=== PATIENT | female | born 1930 | race African-American/Black ===

== ENCOUNTER 2017-02-18 19:01 | Emergency (ER) | payer OTHER, BC ==
[2017-02-18 19:14] VITALS: BP 213/117; PULSE 67; TEMP 98.4; BMI 21.4
== END 2017-02-19 00:21 | disposition left against medical advice (07) ==
LOC: JER 19:01
DX: Z53.21 Procedure and treatment not carried out due to patient leaving prior to being seen by health care provider (principal)
CPT/HCPCS: 99281-25

== ENCOUNTER 2017-02-23 09:49 | Emergency (ER) | payer OTHER, BC ==
[2017-02-23 09:56] VITALS: BP 200/76; PULSE 91; TEMP 98.9; BMI 20.1
== END 2017-02-23 10:21 | disposition left against medical advice (07) ==
LOC: JERFT 09:49
DX: Z53.21 Procedure and treatment not carried out due to patient leaving prior to being seen by health care provider (principal)
CPT/HCPCS: 99281-25

== ENCOUNTER 2018-01-24 18:54 | Emergency (ER) | payer BC, OTHER ==
[2018-01-24 19:09] VITALS: BP 192/64; PULSE 72; TEMP 98.4; BMI 18.3
--- NOTE | 2018-01-24 19:22 | PDOC ---
History of Present Illness - General Chief Complaint: Injury Stated Complaint: AMS Time Seen by Provider: 01/24/18 19:15 - History of Present Illness Initial Comments: 87 year old female with PMH of diabetes, hypertension, and hyperlipidemia, and chronic back pain presenting with an episode of semi-responsiveness two hours prior to presentation. Originally there was no admission of new medication ingestion but after further questioning of the grand daughter when the daughter was outside of the room, there was admission of a percocet for her back pain 1- 2 hours before the episode of semi-responsiveness. Regardless, the patient does not have great recollection of the episode but the family describes it as 3-5 minutes of semi responsiveness where she was weak and leaning on the daughter's shoulders. She was breathing the whole time but just seemed disoriented. She took time to recover from the episode (approximately 30 minutes) but recovered without intervention. The family staunchly deny seizure like activity, bowel/ bladder incontinence or post-ictal phase. Denies recent fevers, chills, nausea, vomiting, diarrhea, sob, chest pain, or other sick symptoms. 01/24/18 20:17 Past History - Past Medical History Allergies/Adverse Reactions: Allergies Allergy/AdvReac Type Severity Reaction Status Date / Time No Known Allergies Allergy Verified 01/24/18 19:09 Home Medications: Ambulatory Orders Amlodipine Besylate 5 mg PO DAILY #10 tablet 01/24/18 Atorvastatin Ca [Lipitor] 10 mg PO HS 01/24/18 Donepezil HCl 5 mg PO DAILY 01/24/18 Losartan Potassium 100 mg PO DAILY 01/24/18 Meloxicam 15 mg PO DAILY 01/24/18 Metformin HCl 500 mg PO DAILY 01/24/18 Sertraline HCl 25 mg PO DAILY 01/24/18 COPD: No Diabetes: Yes GI Disorders: Yes (gerd) HTN: Yes - Surgical History Appendectomy: Yes - Immunization History Immunization Up to Date: Yes - Suicide/Smoking/Psychosocial Hx Smoking History: Never smoked Have you smoked in the past 12 months: No Hx Alcohol Use: No Drug/Substance Use Hx: No Review of Systems - Review of Systems Constitutional: No: Chills, Diaphoresis, Fever HEENTM: No: Eye Pain, Blurred Vision Respiratory: No: Cough, Shortness of Breath, Productive cough Cardiac (ROS): No: Chest Pain, Edema, Lightheadedness ABD/GI: No: Constipated, Diarrhea, Nausea, Vomiting : No: Burning, Dysuria, Discharge Musculoskeletal: Yes: Back Pain, Joint Pain. No: Gout, Muscle Weakness Integumentary: No: Bruising, Change in Color, Flushing Neurological: No: Headache, Numbness, Paresthesia, Tingling, Tremors Psychiatric: No: Anxiety, Depression *Physical Exam - Vital Signs Last Vital Signs Temp Pulse Resp BP Pulse Ox 98.4 F 72 18 192/64 100 01/24/18 19:06 01/24/18 19:06 01/24/18 19:06 01/24/18 19:06 01/24/18 19:06 - Physical Exam General Appearance: Yes: Nourished, Appropriately Dressed. No: Apparent Distress HEENT: positive: EOMI, NOLBERTO, Normal ENT Inspection, Normal Voice Neck: positive: Trachea midline, Normal Thyroid, Supple. negative: Tender, Rigid Respiratory/Chest: positive: Lungs Clear, Normal Breath Sounds. negative: Chest Tender, Respiratory Distress, Accessory Muscle Use Cardiovascular: positive: Regular Rhythm, Regular Rate Gastrointestinal/Abdominal: positive: Normal Bowel Sounds, Flat, Soft. negative : Tender Musculoskeletal: positive: Normal Inspection. negative: Decreased Range of Motion Extremity: positive: Normal Capillary Refill, Normal Inspection, Normal Range of Motion. negative: Tender Integumentary: positive: Normal Color, Dry, Warm Neurologic: positive: software product specialist II-XII NML intact, Fully Oriented, Alert, Normal Mood/ Affect, Normal Response, Motor Strength 5/5, Responsive, Finger to Nose. negative: Abnormal Cranial NS, Facial Droop, Numbness, Sensory Deficit, Confused , Disoriented, Depressed Affect ED Treatment Course - LABORATORY CBC & Chemistry Diagram: 01/24/18 20:00 01/24/18 20:00 Medical Decision Making - Medical Decision Making Head CT negative, labs WNL, and hypertension resolved with 10 IV of hydralazine. Patient feeling much better and would like to go home. Will discharge with Dr. Greene follow up instructions because she wants a new PCP for better BP control. Her pressures have consistently been elevated. Will discharge home with additional 5 amlodipine daily. 01/24/18 21:15 *DC/Admit/Observation/Transfer Diagnosis at time of Disposition: Pre-syncope - Discharge Dispostion Disposition: HOME Condition at time of disposition: Improved Admit: No - Prescriptions Prescriptions: Amlodipine Besylate 5 mg PO DAILY #10 tablet - Referrals Referrals: Jamal Greene MD [Staff Physician] - - Patient Instructions Additional Instructions: Your pressure was very high. Your episode of weakness happened after your took a Percocet that you weren't supposed to take. Please follow up with your PCP this week or the new primary care physician that we placed on the instructions. For ytour blodo pressure you should be taking your metoprolol and losartan as directed plus Amlodipine 5 MG daily. We sent the Amlodipine prescription to your pharmacy. Please return to the ED if you have new or worsening symptoms. - Post Discharge Activity
[2018-01-24 20:11] LABS: BASO % 0.4 % (0-2.0); EOS % 0.2 % (0-4.5); HEMATOCRIT 31.4 % (32.4-45.2); HEMOGLOBIN 10.3 GM/dL (10.7-15.3); LYMPH % 17.1 % (8-40); MCH 26.5 pg (25.7-33.7); MCHC 32.9 g/dl (32.0-36.0); MEAN CELL VOLUME 80.8 fl (80-96); MEAN PLT VOLUME 8.5 fl (7.5-11.1); MONO % 6.1 % (3.8-10.2); NEUT % 76.2 % (42.8-82.8); PLATELET COUNT 292 K/MM3 (134-434); RBC 3.88 M/mm3 (3.60-5.2); RDW 15.7 % (11.6-15.6); WHITE BLOOD COUNT 6.2 K/mm3 (4.0-10.0)
[2018-01-24 20:26] LABS: INR 1.07 (0.82-1.09); PROTHROMBIN TIME (PATIENT) 12.1 SEC (9.98-11.88)
[2018-01-24] MEDS ORDERED: hydrALAZINE HCL 20 MG/ML VIAL IVPUSH ONE (20:36)
[2018-01-24 20:39] LABS: ALBUMIN 3.5 g/dl (3.4-5.0); ANION GAP 12 (8-16); BLOOD UREA NITROGEN 16 mg/dL (7-18); CALCIUM 8.8 mg/dL (8.5-10.1); CHLORIDE 104 mmol/L (98-107); CO2 25 mmol/L (21-32); CREATININE 0.9 mg/dL (0.55-1.02); GLUCOSE,RANDOM 120 mg/dL (74-106); POTASSIUM 3.8 mmol/L (3.5-5.1); SGOT/AST 33 U/L (15-37); SGPT/ALT 28 U/L (12-78); SODIUM 141 mmol/L (136-145)
[2018-01-24 20:43] LABS: ALK PHOS 106 U/L (45-117); BILIRUBIN,TOTAL 0.6 mg/dL (0.2-1.0); TOT PROT 7.2 g/dl (6.4-8.2)
[2018-01-24] MEDS ORDERED: hydrALAZINE HCL 20 MG/ML VIAL ONE (20:51)
--- NOTE | 2018-01-24 21:16 | PDOC ---
Attending Attestation - Resident Resident Name: Jose [email or web address] - ED Attending Attestation I have performed the following: I have examined & evaluated the patient, The case was reviewed & discussed with the resident, I agree w/resident's findings & plan, Exceptions are as noted - HPI HPI: 01/24/18 21:08 87 yo female BIBA after a transient change in mental status, upon arrival she was alert and conversant, with no gross focal deficits head ncat eyes marlon eomi neck supple lungs cta b/l cvs [id number] abd nontender ext no edema,full range of movement skin warm and dry neuro axox3,no gross focal deficits - Physicial Exam PE: 01/25/18 16:43 please see the physical exam above - Medical Decision Making 01/24/18 21:16 ct scan head -negative blood pressure initially elevated but after norvasc her blood pressure came down -she has no cp,no headache,no visual changes -labs reviewed It later became apparent that a family member had given the pt percocet for her back pain and the other family members did not know this 01/24/18 21:21
--- NOTE | 2018-02-03 10:11 | EKG ---
Test Reason : Blood Pressure : / mmHG Vent. Rate : 071 BPM Atrial Rate : 071 BPM P-R Int : 190 ms QRS Dur : 082 ms QT Int : 436 ms P-R-T Axes : 040 000 058 degrees QTc Int : 473 ms NORMAL SINUS RHYTHM POSSIBLE LEFT ATRIAL ENLARGEMENT BORDERLINE ECG WHEN COMPARED WITH ECG OF 12-JUL-2016 12:22, NO SIGNIFICANT CHANGE WAS FOUND Confirmed by ANAYA PALENCIA MD ([id number]) on 02/03/2018 10:10:50 AM Referred By: Confirmed By:ANAYA PALENCIA MD
== END 2018-01-24 22:02 | disposition home or self-care (01) ==
LOC: JER 18:54
DX: R55 Syncope and collapse (principal); R41.82 Altered mental status, unspecified; T40.2X5A Adverse effect of other opioids, initial encounter; Y92.018 Other place in single-family (private) house as the place of occurrence of the external cause; I10 Essential (primary) hypertension; E11.9 Type 2 diabetes mellitus without complications; Z79.84 Long term (current) use of oral hypoglycemic drugs; E78.00 Pure hypercholesterolemia, unspecified; K21.9 Gastro-esophageal reflux disease without esophagitis; M54.5 Low back pain; G89.29 Other chronic pain
CPT/HCPCS: 36415; 70450-TC; 80053; 82550; 82553; 82962; 84484; 85025; 85610; 86850; 86900; 86901; 93005; 93010; 99282-25